=== PATIENT | female | born 1990 | race Caucasian/White ===

== ENCOUNTER 2022-08-06 12:16 | Emergency (ER) | payer OTHER, MEDICAID, SELFPAY ==
[2022-08-06 13:28] VITALS: BP 112/66; PULSE 95; RESP 18; TEMP 36.7; O2SAT 100; BMI 26.9
[2022-08-06 13:55] LABS: Add Manual Diff / Slide Review NO; Basophils Absolute Auto 0 /uL (0-100); Basophils Percent Auto 0.2 % (0-2); Eosinophils Absolute Auto 100 /uL (0-450); Eosinophils Percent Auto 1.2 % (2-4); Hematocrit 46.3 % (36-46); Hemoglobin 15.9 g/dL (12.0-16.0); Lymphocytes Absolute Auto 700 /uL (1100-4500); Lymphocytes Percent Auto 5.5 % (25-40); Mean Corpuscular HGB Conc 34.4 % (30-36); Mean Corpuscular Hemoglobin 30.6 PG (26-34); Mean Corpuscular Volume 88.9 fL (80-100); Monocytes Absolute Auto 400 /uL (0-900); Monocytes Percent Auto 3.6 % (3-14); Neutrophils Absolute Auto 10900 /uL (1500-7000); Neutrophils Percent Auto 89.5 % (50-75); Platelet Count 270 X10^3/uL (150-400); Red Blood Cell Count 5.21 X10^6/uL (4.0-5.2); Red Cell Distribution Width 13.1 % (11.6-14.8); White Blood Cell Count 12.1 X10^3/uL (4.5-11.0)
[2022-08-06 14:02] LABS: Alanine Aminotransferase 62 IU/L (<35); Albumin 4.3 g/dL (3.5-5.0); Albumin Globulin Ratio 1.2 (1.0-2.8); Alkaline Phosphatase 65 U/L (38-126); Aspartate Aminotransferase 37 IU/L (14-36); BUN Creatinine Ratio 27.3 (6-22); Blood Urea Nitrogen 18 mg/dL (7-17); Calcium 8.8 mg/dL (8.4-10.2); Carbon Dioxide 28 mmol/L (22-32); Chloride 101 mmol/L (98-107); Estimated Glomerular Filt Rate > 60 mL/min (>60); Globulin 3.7 g/dL (1.7-4.1); Glucose 88 mg/dL (70-100); HEMOLYSIS < 15 (0-50); Lipase 85 U/L (23-300); Sodium 137 mmol/L (137-145)
[2022-08-06 14:32] VITALS: PULSE 84; O2SAT 100
[2022-08-06 14:34] VITALS: BP 101/64; O2SAT 100
[2022-08-06 15:00] VITALS: O2SAT 99
--- NOTE | 2022-08-06 15:29 | DI.CT.S_ITS ---
PROCEDURE: CT ABDOMEN PELVIS W CON INDICATIONS: Abdominal pain TECHNIQUE: After the administration of intravenous contrast, axial sections acquired from the lung bases to the pubic symphysis. Coronal and sagittal reformats were performed. For radiation dose reduction, the following was used: automated exposure control, adjustment of mA and/or kV according to patient size. COMPARISON: None. FINDINGS: Image quality: Excellent. Lung bases: Unremarkable. Heart: No significant findings. ABDOMEN: Liver: Unremarkable. Gallbladder: Unremarkable. Biliary ducts: Unremarkable. Pancreas: Unremarkable. Spleen: Unremarkable. Adrenal Glands: Unremarkable. Kidneys and Ureters: Unremarkable. Stomach and Bowel: Markedly fluid distended stomach lumen is noted. No gross gastric wall thickening. Mild fluid distension of small bowel loops are seen with questionable small bowel wall thickening and enhancement which may indicate mild enteritis. No colonic wall thickening. No evidence of bowel obstruction. No abscess collection. Peritoneum: No abnormal intraperitoneal fluid. No free air. Ventral Wall: No hernias. Abdominal Nodes: No retroperitoneal or mesenteric adenopathy by size criteria. Vessels: Aorta and inferior vena cava are normal in size. PELVIS: Pelvic Organs: Intrauterine device is noted. No gross abnormality is seen in bilateral adnexa.. Bladder: Unremarkable. Pelvic Nodes: No enlarged lymph nodes. Miscellaneous: No hernias are seen. Bones: No suspicious bony lesion. No acute vertebral body compression fracture. IMPRESSION: 1. Markedly fluid distended stomach lumen which may indicate gastroparesis suggest clinical correlation. No gross gastric wall thickening. 2. Mild fluid distension of small bowel loops with mild small bowel wall thickening and enhancement without focal zone of transition. Finding likely represent mild enteritis and resultant mild ileus. No abnormal colonic wall thickening. No abscess collection. No free fluid or free air. Dictated by: Ke Elizondo M.D. on 08/06/2022 at 16:31 Approved by: Ke Elizondo M.D. on 08/06/2022 at 16:33
[2022-08-06 15:30] VITALS: O2SAT 98
[2022-08-06] MEDS: KETOROLAC 30 MG/ML VIAL 15 MG IV (15:38)
--- NOTE | 2022-08-06 15:45 | ED.BACK ---
HPI - Back Pain/Injury <Stefanie Sinha PA-C - Last Filed: 08/06/22 19:37> General Chief Complaint: Back Pain/Injury Stated Complaint: Pain in back, Has Hep C Time Seen by Provider: 08/06/22 14:23 Source: patient History of Present Illness HPI Narrative: 32-year-old female with hepatitis-C presents to the ED with 2 days of abdominal pain. Patient states that her abdominal pain started last night in the right lower quadrant, she had a bowel movement that was runny this morning, following which the pain migrated to her lower back. Patient denies fever, chills, URI symptoms, chest pain, shortness of breath, dysuria, lightheadedness, dizziness, syncope. Patient denies numbness, tingling, weakness. Patient's pain does not radiate from the lower back. Patient denies trauma. Patient does not get her regular periods due to an IUD in place. Patient endorses distant IV drug use, however last use was 7 years ago. Patient denies any other recreational drug use, endorses occasional alcohol use. Related Data Allergies Allergy/AdvReac Type Severity Reaction Status Date / Time No Known Drug Allergies Allergy Verified 08/06/22 13:28 Review of Systems <Stefanie Sinha PA-C - Last Filed: 08/06/22 19:37> Review of Systems ROS Unobtainable: All systems reviewed & are unremarkable except as noted in HPI and below Constitutional Constitutional: Denies chills, Denies fatigue, Denies fever(s), Denies frequent falls, Denies lethargy and Denies weakness Eyes Eyes: Denies change in vision, Denies eye discharge, Denies irritation and Denies loss of vision ENT Ears, Nose, Mouth, and Throat: Denies change in voice, Denies dizziness, Denies neck pain, Denies sore throat and Denies throat swelling Cardiovascular Cardiovascular: Denies chest pain, Denies irregular heart rhythm, Denies lightheadedness, Denies palpitations, Denies dyspnea, Denies dyspnea on exertion and Denies orthopnea Respiratory Respiratory: Denies cough, Denies dyspnea, Denies dyspnea on exertion and Denies wheezing Gastrointestinal Gastrointestinal: Reports abdominal pain, Reports belching, Denies change in bowel habits, Reports diarrhea, Reports nausea and Denies vomiting Genitourinary Genitourinary: Denies hematuria, Denies flank pain, Denies urinary incontinence and Denies urinary urgency Musculoskeletal Musculoskeletal: Reports back pain, Denies muscle weakness, Denies neck pain, Denies numbness and Denies tingling Integumentary/Breasts Skin/Breast: Denies pruritus, Denies erythema, Denies rash and Denies wounds Neurologic Neurologic: Denies behavioral changes, Denies confusion, Denies dizziness, Denies frequent falls, Denies loss of vision, Denies numbness, Denies tingling and Denies weakness Psychiatric Psychiatric: Denies anxiety, Denies behavioral changes, Denies confusion, Denies depression, Denies homicidal ideation and Denies suicidal ideation Endocrine Endocrine: Denies fatigue, Denies flushing and Denies palpitations Hematologic/Lymphatic Hematologic/Lymphatic: Denies easy bruising Allergic/Immunologic Allergic/Immunologic: Denies urticaria, Denies throat swelling and Denies wheezing Patient History <Stefanie Sinha PA-C - Last Filed: 08/06/22 19:37> Social History Smoking Status: Current every day smoker Smoking Status: Current every day smoker alcohol intake frequency: 0-2 drinks per day Substance Use Type: marijuana Exam <Stefanie Sinha PA-C - Last Filed: 08/06/22 19:37> Narrative Exam Narrative: Const General:?cooperative, healthy appearing and comfortable [facility] Head:?normal to inspection Ears:?hearing grossly normal bilaterally Nose:?external nose normal Face and sinus:?normal facial exam and sinuses nontender Mouth:?oral mucosae normal Throat:?posterior oropharynx normal Eyes General:?appearance normal, both eyes and all related structures Neck Neck:?normal visual inspection and no lymphadenopathy noted Resp Effort & Inspection:?normal respiratory effort Auscultation:?clear to auscultation bilaterally Cardio Rate:?regular rate Rhythm:?regular rhythm GI Abdomen is soft, nondistended. Very mildly tender to palpation diffusely. No CVA tenderness. Musculoskeletal Midline tenderness to palpation in the lower back. No paraspinal tenderness to palpation. Strength and sensation intact. Full range of motion. Patient is neurovascularly intact. Neuro General:?patient alert, patient awake and patient oriented x3 Initial Vital Signs Initial Vital Signs: Vital Signs Temperature 98.1 F 08/06/22 13:28 Pulse Rate 95 H 08/06/22 13:28 Respiratory Rate 18 08/06/22 13:28 Blood Pressure 112/66 08/06/22 13:28 Pulse Oximetry 100 08/06/22 13:28 Oxygen Delivery Method 08/06/22 13:28 <Ann-Marie Mendez DO - Last Filed: 08/09/22 08:02> Initial Vital Signs Initial Vital Signs: Vital Signs Temperature 98.1 F 08/06/22 13:28 Pulse Rate 95 H 08/06/22 13:28 Respiratory Rate 18 08/06/22 13:28 Blood Pressure 112/66 08/06/22 13:28 Pulse Oximetry 100 08/06/22 13:28 Oxygen Delivery Method 08/06/22 13:28 Course <Stefanie Sinha PA-C - Last Filed: 08/06/22 19:37> Orders Ordered: Discontinued Medications Ketorolac Tromethamine (Ketorolac 30 Mg/Ml Vial) 15 mg IV NOW ONE Stop: 08/06/22 15:31 Last Admin: 08/06/22 15:38 Dose: 15 mg Documented By: DARLINE Metoclopramide HCl (Metoclopramide 10 Mg/2 Ml Inj) 10 mg IV NOW ONE Stop: 08/06/22 16:44 Last Admin: 08/06/22 17:14 Dose: Not Given Documented By: DARLINE Vital Signs Vital signs: Vital Signs - 8 hr 08/06/22 13:28 08/06/22 14:32 08/06/22 14:34 Temperature 98.1 F Pulse Rate 95 H 84 Respiratory Rate 18 Blood Pressure 112/66 Pulse Oximetry 100 100 100 Oxygen Delivery Method Room Air 08/06/22 14:34 08/06/22 15:00 08/06/22 15:30 Temperature Pulse Rate Respiratory Rate Blood Pressure 101/64 Pulse Oximetry 99 98 Oxygen Delivery Method 08/06/22 17:14 Temperature Pulse Rate 83 Respiratory Rate Blood Pressure 102/63 Pulse Oximetry 99 Oxygen Delivery Method Room Air <Ann-Marie Mendez DO - Last Filed: 08/09/22 08:02> Orders Ordered: Discontinued Medications Ketorolac Tromethamine (Ketorolac 30 Mg/Ml Vial) 15 mg IV NOW ONE Stop: 08/06/22 15:31 Last Admin: 08/06/22 15:38 Dose: 15 mg Documented By: DARLINE Metoclopramide HCl (Metoclopramide 10 Mg/2 Ml Inj) 10 mg IV NOW ONE Stop: 08/06/22 16:44 Last Admin: 08/06/22 17:14 Dose: Not Given Documented By: DARLINE Vital Signs Vital signs: Vital Signs - 8 hr 08/06/22 13:28 08/06/22 14:32 08/06/22 14:34 Temperature 98.1 F Pulse Rate 95 H 84 Respiratory Rate 18 Blood Pressure 112/66 Pulse Oximetry 100 100 100 Oxygen Delivery Method Room Air 08/06/22 14:34 08/06/22 15:00 08/06/22 15:30 Temperature Pulse Rate Respiratory Rate Blood Pressure 101/64 Pulse Oximetry 99 98 Oxygen Delivery Method 08/06/22 17:14 Temperature Pulse Rate 83 Respiratory Rate Blood Pressure 102/63 Pulse Oximetry 99 Oxygen Delivery Method Room Air MDM - Back Pain/Injury <Stefanie Sinha PA-C - Last Filed: 08/06/22 19:37> Lab Data Result diagrams: 08/06/22 13:39 08/06/22 13:39 Labs: Lab Results 08/06/22 08/06/22 08/06/22 Range/Units 13:39 13:39 13:39 WBC 12.1 H (4.5-11.0) X10^3/uL RBC 5.21 H (4.0-5.2) X10^6/uL Hgb 15.9 (12.0-16.0) g/dL Hct 46.3 H (36-46) % MCV 88.9 (80-100) fL MCH 30.6 (26-34) PG MCHC 34.4 (30-36) % RDW 13.1 (11.6-14.8) % Plt Count 270 (150-400) X10^3/uL Neut % (Auto) 89.5 H (50-75) % Lymph % (Auto) 5.5 L (25-40) % [place] % (Auto) 3.6 (3-14) % Eos % (Auto) 1.2 L (2-4) % Baso % (Auto) 0.2 (0-2) % Neut # (Auto) 71894 H (3745-6064) /uL Lymph # (Auto) 700 L (8627-6717) /uL [place] # (Auto) 400 (0-900) /uL Eos # (Auto) 100 (0-450) /uL Baso # (Auto) 0 (0-100) /uL Sodium 137 (137-145) mmol/L Potassium 4.0 (3.4-5.1) mmol/L Chloride 101 (98-107) mmol/L Carbon Dioxide 28 (22-32) mmol/L BUN 18 H (7-17) mg/dL Creatinine 0.66 (0.52-1.04) mg/dL Estimated GFR > 60 (>60) mL/min BUN/Creatinine Ratio 27.3 H (6-22) Glucose 88 (70-100) mg/dL Lactate 1.0 (0.7-2.1) mmol/L Calcium 8.8 (8.4-10.2) mg/dL Total Bilirubin 1.0 (0.2-1.3) mg/dL AST 37 H (14-36) IU/L ALT 62 H (<35) IU/L Alkaline Phosphatase 65 (38-126) U/L Total Protein 8.0 (6.3-8.2) g/dL Albumin 4.3 (3.5-5.0) g/dL Globulin 3.7 (1.7-4.1) g/dL Albumin/Globulin Ratio 1.2 (1.0-2.8) Lipase 85 (23-300) U/L SARS-CoV-2 (PCR) (Negative) Influenza A (RT-PCR) (NEGATIVE) Influenza B (RT-PCR) (NEGATIVE) RSV (PCR) (Negative) 08/06/22 Range/Units 15:27 WBC (4.5-11.0) X10^3/uL RBC (4.0-5.2) X10^6/uL Hgb (12.0-16.0) g/dL Hct (36-46) % MCV (80-100) fL MCH (26-34) PG MCHC (30-36) % RDW (11.6-14.8) % Plt Count (150-400) X10^3/uL Neut % (Auto) (50-75) % Lymph % (Auto) (25-40) % [place] % (Auto) (3-14) % Eos % (Auto) (2-4) % Baso % (Auto) (0-2) % Neut # (Auto) (5259-3644) /uL Lymph # (Auto) (8907-7258) /uL [place] # (Auto) (0-900) /uL Eos # (Auto) (0-450) /uL Baso # (Auto) (0-100) /uL Sodium (137-145) mmol/L Potassium (3.4-5.1) mmol/L Chloride (98-107) mmol/L Carbon Dioxide (22-32) mmol/L BUN (7-17) mg/dL Creatinine (0.52-1.04) mg/dL Estimated GFR (>60) mL/min BUN/Creatinine Ratio (6-22) Glucose (70-100) mg/dL Lactate (0.7-2.1) mmol/L Calcium (8.4-10.2) mg/dL Total Bilirubin (0.2-1.3) mg/dL AST (14-36) IU/L ALT (<35) IU/L Alkaline Phosphatase (38-126) U/L Total Protein (6.3-8.2) g/dL Albumin (3.5-5.0) g/dL Globulin (1.7-4.1) g/dL Albumin/Globulin Ratio (1.0-2.8) Lipase (23-300) U/L SARS-CoV-2 (PCR) Negative (Negative) Influenza A (RT-PCR) Flu a negative (NEGATIVE) Influenza B (RT-PCR) Flu b negative (NEGATIVE) RSV (PCR) Negative (Negative) Point of Care Testing Test Results Negative Urine Dip Bedside Urine Glucose Negative Bedside Urine Bilirubin - Negative Bedside Urine Ketone - Negative Urine Specific [place] 1.020 Bedside Urine Occult Blood - Negative Bedside Urine pH 6.0 Bedside Urine Protein - Negative Bedside Urine Urobilinogen - Negative Bedside Urine Nitrite - Negative Bedside Urine Leukocytes - Negative Esterase MDM Narrative Medical decision making narrative: 32-year-old female with hepatitis-C presents to the ED with 2 days of abdominal pain. Concern for appendicitis versus pancreatitis versus nephrolithiasis versus UTI versus pyelonephritis versus musculoskeletal sprain/strain versus fracture/dislocation versus versus other intra-abdominal pathology. Will obtain labs, lipase, lactate, CT abdomen pelvis, UA, hCG. Patient was given ketorolac for pain. There was significant improvement in pain, patient was comfortably sitting up in bed and was alert after the pain medication. Labs, urine with no acute findings. CT shows markedly fluid distended stomach lumen which may indicate gastroparesis, mild fluid distention of small-bowel loops with mild small bowel wall thickening and enhancement without focal zone of transition. Finding likely represents mild enteritis and result in mild ileus. No other acute findings. Patient declined Reglan for the gastroparesis. Patient also suddenly appeared markedly more somnolent. Patient declined to provide a urine sample for UDS, left the emergency department against medical advice. Corroborating data: None Data collected from:? Patient ? Medical records reviewed:??None available ? Differential considered:??See above ? Exam documented above, pertinent findings include:? See above ? Lab Test results independently reviewed as above. Pertinent findings: As above ? Independently reviewed EKG as above; n/a ? Imaging studies independently reviewed: As above ? Consultations:n/a ? Treatments: toradol ? Re-evaluations:as above ? Discussion: as above ? Diagnosis: Abdominal pain, back pain ? Disposition: Against Medical Advice as above <Ann-Marie Mendez, DO - Last Filed: 08/09/22 08:02> Lab Data Labs: Lab Results 08/06/22 08/06/22 08/06/22 Range/Units 13:39 13:39 13:39 WBC 12.1 H (4.5-11.0) X10^3/uL RBC 5.21 H (4.0-5.2) X10^6/uL Hgb 15.9 (12.0-16.0) g/dL Hct 46.3 H (36-46) % MCV 88.9 (80-100) fL MCH 30.6 (26-34) PG MCHC 34.4 (30-36) % RDW 13.1 (11.6-14.8) % Plt Count 270 (150-400) X10^3/uL Neut % (Auto) 89.5 H (50-75) % Lymph % (Auto) 5.5 L (25-40) % [place] % (Auto) 3.6 (3-14) % Eos % (Auto) 1.2 L (2-4) % Baso % (Auto) 0.2 (0-2) % Neut # (Auto) 18120 H (4994-8347) /uL Lymph # (Auto) 700 L (4818-8308) /uL [place] # (Auto) 400 (0-900) /uL Eos # (Auto) 100 (0-450) /uL Baso # (Auto) 0 (0-100) /uL Sodium 137 (137-145) mmol/L Potassium 4.0 (3.4-5.1) mmol/L Chloride 101 (98-107) mmol/L Carbon Dioxide 28 (22-32) mmol/L BUN 18 H (7-17) mg/dL Creatinine 0.66 (0.52-1.04) mg/dL Estimated GFR > 60 (>60) mL/min BUN/Creatinine Ratio 27.3 H (6-22) Glucose 88 (70-100) mg/dL Lactate 1.0 (0.7-2.1) mmol/L Calcium 8.8 (8.4-10.2) mg/dL Total Bilirubin 1.0 (0.2-1.3) mg/dL AST 37 H (14-36) IU/L ALT 62 H (<35) IU/L Alkaline Phosphatase 65 (38-126) U/L Total Protein 8.0 (6.3-8.2) g/dL Albumin 4.3 (3.5-5.0) g/dL Globulin 3.7 (1.7-4.1) g/dL Albumin/Globulin Ratio 1.2 (1.0-2.8) Lipase 85 (23-300) U/L SARS-CoV-2 (PCR) (Negative) Influenza A (RT-PCR) (NEGATIVE) Influenza B (RT-PCR) (NEGATIVE) RSV (PCR) (Negative) 08/06/22 Range/Units 15:27 WBC (4.5-11.0) X10^3/uL RBC (4.0-5.2) X10^6/uL Hgb (12.0-16.0) g/dL Hct (36-46) % MCV (80-100) fL MCH (26-34) PG MCHC (30-36) % RDW (11.6-14.8) % Plt Count (150-400) X10^3/uL Neut % (Auto) (50-75) % Lymph % (Auto) (25-40) % [place] % (Auto) (3-14) % Eos % (Auto) (2-4) % Baso % (Auto) (0-2) % Neut # (Auto) (2969-0467) /uL Lymph # (Auto) (4472-6030) /uL [place] # (Auto) (0-900) /uL Eos # (Auto) (0-450) /uL Baso # (Auto) (0-100) /uL Sodium (137-145) mmol/L Potassium (3.4-5.1) mmol/L Chloride (98-107) mmol/L Carbon Dioxide (22-32) mmol/L BUN (7-17) mg/dL Creatinine (0.52-1.04) mg/dL Estimated GFR (>60) mL/min BUN/Creatinine Ratio (6-22) Glucose (70-100) mg/dL Lactate (0.7-2.1) mmol/L Calcium (8.4-10.2) mg/dL Total Bilirubin (0.2-1.3) mg/dL AST (14-36) IU/L ALT (<35) IU/L Alkaline Phosphatase (38-126) U/L Total Protein (6.3-8.2) g/dL Albumin (3.5-5.0) g/dL Globulin (1.7-4.1) g/dL Albumin/Globulin Ratio (1.0-2.8) Lipase (23-300) U/L SARS-CoV-2 (PCR) Negative (Negative) Influenza A (RT-PCR) Flu a negative (NEGATIVE) Influenza B (RT-PCR) Flu b negative (NEGATIVE) RSV (PCR) Negative (Negative) Point of Care Testing Test Results Negative Urine Dip Bedside Urine Glucose Negative Bedside Urine Bilirubin - Negative Bedside Urine Ketone - Negative Urine Specific [place] 1.020 Bedside Urine Occult Blood - Negative Bedside Urine pH 6.0 Bedside Urine Protein - Negative Bedside Urine Urobilinogen - Negative Bedside Urine Nitrite - Negative Bedside Urine Leukocytes - Negative Esterase Discharge Plan Departure Patient Disposition: Left Against Medical Advice Clinical Impression: Left against medical advice Stand Alone Forms: Against Medical Advice <Ann-Marie Mendez DO - Last Filed: 08/09/22 08:02> Cosign ED Attending Ruperto Attestation: I was unaware of patient leaving against medical advice. I was immediately available in the department for consultation. Documentation has been reviewed. I agree with assessment and plan.
[2022-08-06 16:19] LABS: Influenza A - CEPHEID Flu A NEGATIVE (NEGATIVE); Influenza B - CEPHEID Flu B NEGATIVE (NEGATIVE); Respiratory Syncytial Virus Negative (Negative)
[2022-08-06 16:24] LABS: COVID-19 CEPHEID 4-PLEX PCR Negative (Negative)
--- NOTE | 2022-08-06 17:05 | PC.NURSE ---
Pt reports intense mid and low back pain that began yesterday, some nausea, fatigue and body aches. Pt is tearful and wincing. 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 Pt states pain in back feels, like contractions. Provider aware.
[2022-08-06 17:14] VITALS: BP 102/63; PULSE 83; O2SAT 99
--- NOTE | 2022-08-06 17:28 | PC.NURSE ---
When asked for a second urine sample pt states no way- I'm just going home. No s/s of pain / distress. Moving all extremities equally well. a/o x 4. Refused offer of provider re-evaluation. Refused mask. IV discontinued.
== END 2022-08-06 17:30 | disposition left against medical advice (07) ==
PROVIDERS: Emergency Medicine; Emergency Provider Student in an Organized Health Care Education/Training Program
DX: R10.31 Right lower quadrant pain (principal); Z20.822 Contact with and (suspected) exposure to COVID-19
CPT/HCPCS: 0241U; 74177; 80053; 81003; 81025; 83605; 83690; 85025; 96372; 99283; 99284; J1885; Q9967

== ENCOUNTER 2023-05-19 07:23 | Emergency (ER) | payer OTHER, MEDICAID, SELFPAY ==
[2023-05-19 07:37] VITALS: BP 147/78; PULSE 96; RESP 18; TEMP 37.2; O2SAT 99; BMI 26.5
--- NOTE | 2023-05-19 07:43 | DI.RAD.S_ITS ---
PROCEDURE: XR HAND LT MIN 3V INDICATIONS: dog bite. swelling. TECHNIQUE: 3 views of the hand(s) acquired. COMPARISON: None. FINDINGS: Bones: No fractures or dislocations. Carpal bones are normally aligned. No suspicious bony lesions. Soft tissues: Laceration in soft tissue adjacent to radial aspect of 2nd metacarpal shaft is seen. No radiopaque foreign body. No suspicious soft tissue calcifications. IMPRESSION: Soft tissue laceration in left hand. No acute fracture or dislocation. No radiopaque foreign bodies. Dictated by: Ke Elizondo M.D. on 05/19/2023 at 8:08 Approved by: Ke Elizondo M.D. on 05/19/2023 at 8:09
--- NOTE | 2023-05-19 07:44 | DI.RAD.S_ITS ---
PROCEDURE: XR HAND RT MIN 3V INDICATIONS: dog bite. swelling TECHNIQUE: 3 views of the hand(s) acquired. COMPARISON: None. FINDINGS: Bones: No fractures or dislocations. Carpal bones are normally aligned. No suspicious bony lesions. Soft tissues: No suspicious soft tissue calcifications. IMPRESSION: No acute right hand fracture or dislocation. No radiopaque foreign bodies. Dictated by: Ke Elizondo M.D. on 05/19/2023 at 8:09 Approved by: Ke Elizondo M.D. on 05/19/2023 at 8:11
--- NOTE | 2023-05-19 08:24 | ED.WOUNDLAC ---
HPI - Wound/Laceration General Chief Complaint: Wound/Laceration Stated Complaint: TRIED TO BREAK UP DOG FIGHT Time Seen by Provider: 05/19/23 07:58 Source: patient Mode of arrival: Family Vehicle History of Present Illness HPI narrative: Patient 33-year-old female who presents with bilateral hand injuries with dog bite. She reports that she is dog sitting she was trying to break up a dog fight she got in the middle of the 2 dogs tried to punch a dog and got bit in both hands. She thinks her last tetanus was about 6 years ago. She has obvious swelling Related Data Previous Rx's Medication Instructions Recorded amoxicillin 875 mg-potassium 1 tab PO BID #20 tabs 05/19/23 clavulanate 125 mg tablet Allergies Allergy/AdvReac Type Severity Reaction Status Date / Time No Known Drug Allergies Allergy Verified 05/19/23 07:42 Patient History Social History Smoking Status: Current every day smoker Smoking Status: Current every day smoker alcohol intake frequency: 0-2 drinks per day Substance Use Type: marijuana Exam Initial Vital Signs Initial Vital Signs: Vital Signs Temperature 99.0 F 05/19/23 07:37 Pulse Rate 96 H 05/19/23 07:37 Respiratory Rate 18 05/19/23 07:37 Blood Pressure 147/78 H 05/19/23 07:37 Pulse Oximetry 99 05/19/23 07:37 Oxygen Delivery Method Room Air 05/19/23 07:37 GENERAL: Well-appearing, well-nourished and in no acute distress. CARDIOVASCULAR: peripheral pulses in tact, cap refill <2 sec RESPIRATORY: No respiratory distress, speaks in full sentences without difficulty EXTREMITIES: Normal range of motion, no clubbing or edema. Neurovascularly intact Right hand significant swelling over 2nd and 3rd metacarpals, left hand laceration in the thenar eminence. Vascularly intact bilaterally radial, median and ulnar nerves intact distal radial pulses intact hands are quite dirty. NEUROLOGICAL: Cranial nerves II through XII grossly intact. Normal gait and speech. SKIN: Left hand thenar eminence 2.5 cm full range of motion adipose tissue exposed. Right dorsal side 1 cm superficial puncture wound Procedures Laceration Repair Laceration 1: Site: hand Side (If applicable): left Size (cm): 2.5 Description: linear Depth: simple, single layer Local Anesthetic: lidocaine 1% Amount of anesthesia used (mL): 3 Pre-repair: wound explored, irrigated extensively and deep structures intact Skin layer closed with: nylon Skin layer suture size: 5-0 Number of sutures: 2 Technique: simple, interrupted Course Orders Ordered: ED Orders 05/19/23 07:43 XR hand LT min 3V Stat 05/19/23 07:44 XR hand RT min 3V Stat Discontinued Medications Acetaminophen (Acetaminophen 325 Mg Tablet) 975 mg PO NOW ONE Stop: 05/19/23 08:08 Last Admin: 05/19/23 08:26 Dose: 975 mg Diphtheria/Tetanus/Acell Pertussis (Tet,Diph,Pertuss(Acell),Vac/Pf 0.5 Ml Syringe) 0.5 ml IM .ONCE ONE Stop: 05/19/23 08:30 Ibuprofen (Ibuprofen 400 Mg Tablet) 800 mg PO NOW ONE Stop: 05/19/23 08:08 Last Admin: 05/19/23 08:27 Dose: 800 mg Vital Signs Vital signs: Vital Signs - 8 hr 05/19/23 07:37 Temperature 99.0 F Pulse Rate 96 H Respiratory Rate 18 Blood Pressure 147/78 H Pulse Oximetry 99 Oxygen Delivery Method Room Air MDM - Wound/Laceration Imaging Data Extremity x-ray #1: Radiologist's Impression: PROCEDURE: XR HAND LT MIN 3V INDICATIONS: dog bite. swelling. TECHNIQUE: 3 views of the hand(s) acquired. COMPARISON: None. FINDINGS: Bones: No fractures or dislocations. Carpal bones are normally aligned. No suspicious bony lesions. Soft tissues: Laceration in soft tissue adjacent to radial aspect of 2nd metacarpal shaft is seen. No radiopaque foreign body. No suspicious soft tissue calcifications. IMPRESSION: Soft tissue laceration in left hand. No acute fracture or dislocation. No radiopaque foreign bodies. Dictated by: Ke Elizondo M.D. on 05/19/2023 at 8:08 Extremity x-ray #2: Radiologist's Impression: PROCEDURE: XR HAND RT MIN 3V INDICATIONS: dog bite. swelling TECHNIQUE: 3 views of the hand(s) acquired. COMPARISON: None. FINDINGS: Bones: No fractures or dislocations. Carpal bones are normally aligned. No suspicious bony lesions. Soft tissues: No suspicious soft tissue calcifications. IMPRESSION: No acute right hand fracture or dislocation. No radiopaque foreign bodies. Dictated by: Ke Elizondo M.D. on 05/19/2023 at 8:09 Approved by: Ke Elizondo M.D. on 05/19/2023 at 8:11 [facility] Narrative Medical decision making narrative: Patient 33-year-old female who presents today with dog bite to both hands. X-rays are negative for fracture and foreign body. She is multiple small superficial puncture like wounds with left hand laceration. Hand is repaired loosely. Hands are cleaned. She is given Tylenol Motrin in the ED. will start her on Augmentin. She is also given tetanus shot as well. Discharge Plan Departure Patient Disposition: Home Clinical Impression: Dog bite Instructions: DI for Laceration Repair, DI for Dog Bite Activity Restrictions/Additional Instructions: *You have been diagnosed with dog bite both hands with laceration *What to do: At this time expect to be sore and bruised. Keep hand swollen. Ice 20-30 minutes at a time. Keep hands clean and dry with soap and water. May apply antibiotic ointment 1-2 times daily. Have sutures removed in about 7 days by walk-in clinic PCP or ED *Continue to take medications as directed Tylenol 1000 mg every 6 hours if needed for [id number] pain Motrin 600 mg every 6 hours if needed for [id number] pain Augmentin 875 mg twice a day for 10 days--> [place] in [place] *Follow up with your primary care provider in 2-3 days or call [phone] *Return to ER if you should have increasing pain redness numbness tingling weakness or any new, worsening or concerning symptoms Prescriptions: New amoxicillin-pot clavulanate 875-125 mg tablet 1 tab PO BID Qty: 20 0RF Referrals: Miscellaneous,Doctor, [Primary Care Provider] - Stand Alone Forms: Patient Portal/API
[2023-05-19] MEDS: ACETAMINOPHEN 325 MG TABLET 975 MG PO (08:26)
[2023-05-19] MEDS: IBUPROFEN 400 MG TABLET 800 MG PO (08:27)
[2023-05-19] MEDS: TET,DIPH,PERTUSS(ACELL),VAC/PF 0.5 ML SYRINGE IM (08:42)
[2023-05-19 09:00] VITALS: BP 120/72; PULSE 93; O2SAT 99
== END 2023-05-19 09:30 | disposition home or self-care (01) ==
PROVIDERS: Emergency Provider Emergency Medicine
DX: S61.452A Open bite of left hand, initial encounter (principal); S61.451A Open bite of right hand, initial encounter; W54.0XXA Bitten by dog, initial encounter; Z23 Encounter for immunization
CPT/HCPCS: 12001; 73130; 90471; 99283; 99284; 90715